=== PATIENT | female | born 1975 | race African-American/Black ===

== ENCOUNTER → 2019-03-26 | Outpatient (CLI) | payer BC | LOC: COL.RAD 14:12 | DX: M48.061 Spinal stenosis, lumbar region without neurogenic claudication (principal); M51.16 Intervertebral disc disorders with radiculopathy, lumbar region ==

== ENCOUNTER 2020-08-11 14:21 | Outpatient (CLI) | payer BC ==
[~2020-08-11] VITALS: Ht 160 cm; Wt 119.0 kg
[2020-08-11] VITALS (8 sets, daily range): BP systolic 102–122; BP diastolic 48–83; PULSE 16–99; TEMP 99.2–99.6
[~2020-08-11 14:21] MED LIST: PIRMELLA 1/351 TAB PO; PRAVACHOL 40MG40 MG PO; PRINIVIL20 MG PO; TRULICITY0.75 MG/0. SQ; XIGDUO5/1000 PO; ZOFRAN 4MG T4 MG/TAB PO
--- NOTE | 2020-08-11 17:32 | NUR ---
Pt tolerated infusion without any problems. Pt is amb to exit with steady gait.
== END 2020-08-11 17:20 | disposition home or self-care (01) ==
LOC: EUO 14:21
DX: U07.1 COVID-19 (principal)
CPT/HCPCS: J7050